=== PATIENT | female | born 1990 | race Caucasian/White ===

== ENCOUNTER 2019-12-26 13:34 | Outpatient (CLI) | payer OTHER ==
[~2019-12-26] VITALS: Ht 160 cm; Wt 61.5 kg
[2019-12-26 14:00] VITALS: BP 116/68
[2019-12-26 14:41] LABS: APPEARANCE, URINE CLEAR (CLEAR); BACTERIA, URINE AUTO NEGATIVE (NEGATIVE); BILIRUBIN, URINE AUTO NEGATIVE (NEGATIVE); BLOOD, URINE BLOOD NEGATIVE (NEGATIVE); COLOR, URINE YELLOW (YELLOW); GLUCOSE, URINE (UA) AUTO NEGATIVE (NEGATIVE); KETONE, URINE AUTO NEGATIVE (NEGATIVE); LEUKOCYTE ESTERASE, URINE AUTO TRACE (NEGATIVE); MUCUS, URINE SMALL (NEGATIVE); NITRITE, URINE AUTO NEGATIVE (NEGATIVE); PROTEIN, URINE AUTO NEGATIVE (NEGATIVE); RBC, URINE AUTO 0 /HPF (0-3); SPECIFIC GRAVITY URINE AUTO 1.011 (1.002-1.035); SQUAMOUS EPITHELIAL CELL UR AU 1 /HPF (0-6); UROBILINOGEN, URINE AUTO 0.2 mg/dL (0.0-2.0); WBC, URINE AUTO 2 /HPF (0-3)
[2019-12-26] MEDS ORDERED: MAGN400C PO (16:08)
[2019-12-26] MEDS ORDERED: OMEP-218 PO (16:08)
== END 2019-12-26 15:40 | disposition home or self-care (01) ==
LOC: M LDO 13:34
PROVIDERS: ATTEND Advanced Practice Midwife
DX: O26.892 Other specified pregnancy related conditions, second trimester (principal); Z3A.26 26 weeks gestation of pregnancy

== ENCOUNTER → 2019-12-26 | Outpatient (CLI) | payer OTHER ==
[~2019-12-26] MED LIST: MAGN400C PO; OMEP-218 PO
--- NOTE | 2020-01-10 17:11 | REP ---
COMPLETE OBSTETRICAL ULTRASOUND: 12/26/19 CLINICAL: Anatomical assessment. TECHNIQUE: Transabdominal obstetric ultrasound with color Doppler evaluation. FINDINGS: Ultrasound examination demonstrates a single live intrauterine in transverse lie with head to maternal left. motion identified by technologist. The placenta noted anteriorly and grade 1 without evidence for placenta previa or abruption. Amniotic fluid volume is normal. The cervix measures 3.4cm in length and appears closed. NO evidence of nuchal cord. Gestational age by LMP 26 weeks 6 days with estimated date of delivery 03/27/20. Gestational age by current measurements 26 weeks 4 days with estimated date of delivery 03/29/20. HEART RATE: 147bpm Estimated weight: 970g (50th percentile) Anatomical assessment demonstrates normal cranium, choroid plexus, ventricles, cerebellum/cere fossa, facial features, diaphragm, stomach, three vessel cord/cord insertion, kidneys/bladder, spine and extremities. Limited evaluation of the four chamber heart and cardiac ventricular outflow tracts noted. IMPRESSION: 1. Single live intrauterine demonstrating appropriate interval growth. 2. Limited evaluation of the heart and cardiac ventricular outflow tracts warrants follow-up. Remainder of the anatomical assessment is complete and normal. MTDD
== END ==
LOC: M WHC 08:10
PROVIDERS: ATTEND Advanced Practice Midwife
DX: O32.2XX0 Maternal care for transverse and oblique lie, not applicable or unspecified (principal); Z36.89 Encounter for other specified antenatal screening; Z3A.26 26 weeks gestation of pregnancy

== ENCOUNTER → 2020-03-11 | Outpatient (REF) | payer OTHER, MEDICAID ==
[~2020-03-11] MED LIST changes: +DIFL200T PO
== END ==
LOC: M SFHCWAGY 10:07
PROVIDERS: ATTEND Obstetrics & Gynecology
DX: O34.219 Maternal care for unspecified type scar from previous cesarean delivery (principal)

== ENCOUNTER → 2020-03-14 | Outpatient (CLI) | payer OTHER ==
[~2020-03-14] MED LIST changes: +PERCOCET PO
--- NOTE | 2020-03-14 13:02 | REP ---
INDICATION: GROWTH/YONATAN. TECHNIQUE: Transabdominal scanning FINDINGS: Multiple ultrasonographic images of the gravid uterus show a single living intrauterine gestation in the cephalic presentation. Doppler interrogation of the heart is a heart rate of 146 beats per minute. The placenta is anterior and not low lying. The cervix measures 3.2 cm in length and is closed. The subjective amniotic fluid volume is within normal limits. The calculated amniotic fluid index is 10.4 with an expected range 7.3 to 23.8. BPD 9.2 cm 37 weeks 3 days, HC 33.0 cm 37 weeks 4 days, AC 32.8 cm 36 weeks 5 days, FL 6.6 cm 34 weeks 0 days. Estimated weight is 2877 g which is at the 19th percentile for 38 week 1 day gestational age. IMPRESSION: Limited OB ultrasound as described above with an estimated gestational age of 36 weeks 0 days via composite criteria and an CAIO of 04/11/2020 based on that. <Electronically signed by Delfino Cantu > 03/14/20 [id number]
== END ==
LOC: M WHC 11:11
PROVIDERS: ATTEND Obstetrics & Gynecology
DX: O34.219 Maternal care for unspecified type scar from previous cesarean delivery (principal); Z3A.36 36 weeks gestation of pregnancy

== ENCOUNTER → 2020-03-17 | Outpatient (CLI) | payer OTHER ==
[~2020-03-17] MED LIST changes: -PERCOCET PO
== END ==
LOC: M LABSMTC 12:40
PROVIDERS: ATTEND Anesthesiology
DX: Z01.812 Encounter for preprocedural laboratory examination (principal); Z20.828 Contact with and (suspected) exposure to other viral communicable diseases

== ENCOUNTER 2020-03-20 05:29 | Inpatient (IN) | payer OTHER ==
[2020-03-20] VITALS (8 sets, daily range): BP systolic 115–149; BP diastolic 63–91
[~2020-03-20] VITALS: Ht 160 cm; Wt 65.0 kg
[2020-03-20] MEDS ORDERED: BICITRA 30ML SOLN UDC PO ONE (06:00)
[2020-03-20] MEDS ORDERED: LR 1,000 ML IV ONE (06:00)
[2020-03-20] MEDS ORDERED: ceFAZolin SOD 2 GM in IV 1 EA IV ONE (06:00)
[2020-03-20 06:10] LABS: BASO % 0.3 % (0.0-1.0); EOS # 0.2 10^3/uL (0.0-0.5); EOS % 1.4 % (0.0-3.0); HEMATOCRIT 34.9 % (36.0-47.0); HEMOGLOBIN 10.8 g/dl (12.0-15.5); LYMPH # 2.5 10^3/uL (1.5-5.0); LYMPH % 22.6 % (24.0-44.0); MEAN CORPUSCULAR HEMOGLOBIN 26.1 pg (27.0-33.0); MEAN CORPUSCULAR HGB CONC 30.9 g/dl (32.0-36.5); MEAN CORPUSCULAR VOLUME 84.3 fl (80.0-96.0); MONO # 0.7 10^3/uL (0.0-0.8); MONO % 6.5 % (0.0-5.0); NEUTROPHILS # 7.4 10^3/uL (1.5-8.5); NEUTROPHILS % 68.3 % (36.0-66.0); PLATELET COUNT, AUTOMATED 279 10^3/uL (150-450); RED BLOOD COUNT 4.14 10^6/uL (4.00-5.40); WHITE BLOOD COUNT 10.8 10^3/uL (4.0-10.0)
[2020-03-20] MEDS ORDERED: LR 1,000 ML IV SCH (07:00)
[2020-03-20] MEDS ORDERED: MORPHINE PRES-FREE INJ 10 MG/10 ML VIAL (J2274) As Ordered ONE (07:32)
[2020-03-20] MEDS ORDERED: PHENYLephrine HCL 500 MCG/5 ML (100MCG/ML) SYRINGE (J2370) As Ordered ONE (07:33)
[2020-03-20] MEDS ORDERED: OXYTOCIN 30 UNITS IN 0.9% NaCl 500ML IV BAG (J2590) As Ordered ONE ×2 (07:33→09:00)
[2020-03-20] MEDS ORDERED: ePHEDrine SULFATE 25 MG/5 ML(5MG/ML) SYRINGE As Ordered ONE (07:33)
[2020-03-20] MEDS ORDERED: NALOXONE INJ 0.4MG/1ML VIAL (J2310 PER 1MG) IV PRN ×2 (07:47)
[2020-03-20] MEDS ORDERED: NALBUPHINE HCL 10 MG/ML AMP (J2300) IV PRN (07:47)
[2020-03-20] MEDS ORDERED: ONDANSETRON 4MG/2ML VIAL IV PRN ×3 (07:47→09:15)
[2020-03-20] MEDS ORDERED: diphenhydrAMINE 50MG/ML VIAL (J1200) IV PRN (07:47)
[2020-03-20] MEDS ORDERED: METOCLOPRAMIDE INJ 10MG/2ML VIAL (J2765 PER 1) IV PRN (07:47)
[2020-03-20 08:15] LABS: AMPHETAMINES URINE REFLEX NEGATIVE (NEGATIVE); BARBITURATES URINE REFLEX NEGATIVE (NEGATIVE); BENZODIAZEPINES URINE REFLEX NEGATIVE (NEGATIVE); COCAINE METABOLITE URINE REFLE NEGATIVE (NEGATIVE); METHADONE URINE REFLEX NEGATIVE (NEGATIVE); OPIATES URINE REFLEX NEGATIVE (NEGATIVE); PHENCYCLIDINE URINE REFLEX NEGATIVE (NEGATIVE)
[2020-03-20] MEDS ORDERED: ONDANSETRON 4MG/2ML VIAL As Ordered ONE (08:15)
[2020-03-20 08:48] LABS: CANNABINOIDS URINE REFLEX PENDING CONFIRMATION (NEGATIVE)
[2020-03-20] MEDS ORDERED: OXYTOCIN DRIP 30 UNITS in IV 1 EA IV SCH (08:49)
--- NOTE | 2020-03-20 08:58 | ROOPDOC ---
[facility] Report Of Operation Report of Operation DATE OF PROCEDURE: 03/20/2020 PREPROCEDURE DIAGNOSES: 39+ weeks gestation, history of low transverse section 2 POSTPROCEDURE DIAGNOSES: Same as preoperative PROCEDURE: Repeat low transverse section SURGEON: Jose Alejandro Tsai DO FACOG ULTRASONOGRAPHER: García Manjarrez MD FACOG (Essential role in retraction, extraction, and closure of all tissue layers) ANESTHESIA: Spinal with Duramorph ESTIMATED BLOOD LOSS: 500 mL. IV FLUIDS: 1400 mL LR URINE OUTPUT: 100 mL COMPLICATIONS: None. PREOPERATIVE ANTIBIOTICS: Ancef 2g IV x 1. COMPLICATIONS: none DATA: Apgars 9 and 9. Birthweight, 2980 g, 6 lbs 9 oz. SPECIMENS: none PRIMARY INDICATION FOR : History of prior low transverse sections DESCRIPTION OF PROCEDURE: The patient was counseled on the risks, benefits, indications and alternatives of the procedure. Informed consent was obtained. She was taken to the operating room with IV running and placed on the operating table in the dorsal supine position with a leftward tilt. Regional anesthesia/epidural was bolused and found to be adequate. Sequential compression devices were placed on the lower extremities. A Blue catheter was placed under sterile conditions. She was prepared and draped in normal sterile fashion. A time out was performed per protocol. Epidural anesthesia was again found to be adequate. A Pfannenstiel skin incision was made with the 10 blade. The 10 blade was used to dissect down to the level of the rectus sheath fascia. The rectus sheath pressure was incised midline and this was extended bilaterally with Artis scissors , and manual stretch. The rectus muscle bellies were dissected off the rectus sheath fascia superiorly and inferiorly using both sharp and blunt dissection. The midline was identified. The peritoneum was identified and entered digitally. The peritoneal opening was extended with manual stretch. The Mobius retractor was placed. The vesicouterine peritoneum was dissected with Metzenbaum scissors to create the bladder flap. A low transverse uterine incision was made with the 10 blade. This was extended with manual stretch. The amniotic sac was punctured, and clear fluid was noted. The head delivered through the hysterotomy without difficulty. The remainder of the body delivered with ease. The cord was doubly clamped and cut, and the baby was handed off to awaiting care. data shown above. The placenta was removed manually. The intrauterine cavity was cleared of all clot and debris. The hysterotomy was closed with 0 Vicryl in running locked fashion. This was reinforced with a second imbricating layer using 0 Vicryl in running fashion. Excellent hemostasis of the hysterotomy was noted. The pelvis was irrigated and the fluid suctioned. The Mobius retractor was removed. The peritoneum was closed with 3-0 Vicryl running fashion. The rectus muscle bellies were reapproximated with interrupted stitches using 3-0 Vicryl. The rectus muscles bellies were hemostatic. The rectus sheath fascia was closed with 0 Vicryl running fashion. The subcutaneous layer was irrigated and the fluid suctioned. Small bleeding vessels were cauterized with Bovie. Excellent hemostasis was noted. The subcutaneous layer was reapproximated with 3-0 Vicryl running fashion. Skin was closed with 3-0 Monocryl in subcuticular fashion. An Optifoam bandage was placed over the closed incision. Sponge, needle and instrument counts were correct per protocol throughout the procedure. The patient tolerated the entire procedure very well. She was transferred to the PACU in stable condition. DO JODI Ware JONATHAN R. DO Mar 20, 2020 08:58
[2020-03-20] MEDS ORDERED: PERCOCET 5MG/325MG TAB PO PRN (09:00)
[2020-03-20] MEDS ORDERED: RHOGAM 300 MCG (1500 IU) INJ (J2790) IM SCH (09:00)
[2020-03-20] MEDS ORDERED: ACETAMINOPHEN 500 MG TAB PO PRN (09:00)
[2020-03-20] MEDS ORDERED: MEASLES,MUMPS,RUBELLA VACCINE INJ (MMR-II) (90707) SC SCH (09:00)
[2020-03-20] MEDS: PRENATAL VITAMINS CHEWABLE TABLET PO SCH (09:00)
[2020-03-20] MEDS: DOCUSATE SODIUM 100MG CAPSULE PO SCH ×2 (09:00→21:13)
[2020-03-20] MEDS ORDERED: oxyCODONE 5MG TAB PO PRN (09:15)
[2020-03-20] MEDS ORDERED: fentaNYL 100 MCG/2 ML INJECTION (J3010) As Ordered ONE (09:19)
[2020-03-20] MEDS: fentaNYL 100 MCG/2 ML INJECTION (J3010) IV PRN ×4 (09:21→09:48)
[2020-03-20 09:39] LABS: HEPATITIS C VIRUS ABY INDEX < 0.0 INDEX (<0.8); HIV 1&2 SCREEN CENTAUR NEGATIVE (NEGATIVE)
[2020-03-20] MEDS ORDERED: oxyCODONE 5MG TAB As Ordered ONE (09:52)
[2020-03-20] MEDS: KETOROLAC 30 MG/ML 1ML VIAL IV SCH ×3 (11:12→22:51)
[2020-03-20] MEDS: PROMETHAZINE 25 MG TAB PO PRN (12:51)
[2020-03-20] MEDS: PERCOCET 5MG/325MG TAB PO PRN (19:27)
[2020-03-21] MEDS: PROMETHAZINE 25 MG TAB PO PRN (00:38)
[2020-03-21 02:00] VITALS: BP 128/83
[2020-03-21] MEDS: KETOROLAC 30 MG/ML 1ML VIAL IV SCH (05:08)
[2020-03-21 06:00] VITALS: BP 146/76
[2020-03-21 06:59] LABS: HEMATOCRIT 34.4 % (36.0-47.0); HEMOGLOBIN 10.4 g/dl (12.0-15.5); MEAN CORPUSCULAR HEMOGLOBIN 25.9 pg (27.0-33.0); MEAN CORPUSCULAR HGB CONC 30.2 g/dl (32.0-36.5); MEAN CORPUSCULAR VOLUME 85.8 fl (80.0-96.0); PLATELET COUNT, AUTOMATED 275 10^3/uL (150-450); RED BLOOD COUNT 4.01 10^6/uL (4.00-5.40); WHITE BLOOD COUNT 11.5 10^3/uL (4.0-10.0)
[2020-03-21] MEDS: DOCUSATE SODIUM 100MG CAPSULE PO SCH (08:05)
[2020-03-21] MEDS: PERCOCET 5MG/325MG TAB PO PRN ×2 (08:05→14:03)
[2020-03-21] MEDS ORDERED: PERCOCET PO (08:40)
[2020-03-21] MEDS: PRENATAL VITAMINS CHEWABLE TABLET PO SCH (09:00)
--- NOTE | 2020-03-21 09:02 | DS.PDOC ---
Discharge Summary General Date of Admission Mar 20, 2020 at 05:29 Date of Discharge 03/21/20 Discharge Summary PROCEDURES PERFORMED DURING STAY: Repeat LTCS ADMITTING DIAGNOSES: 1. Repeat LTCS. 2. Insufficient Care DISCHARGE DIAGNOSES: 1. Postoperative Day 1, desires discharge, per Consult with Dr. Manjarrez cleared for discharge COMPLICATIONS/CHIEF COMPLAINT: Previous Section. HISTORY OF PRESENT ILLNESS: Bina is a 30 y/o at 39 weeks EGA, who was admitted for a 3rd Repeat LTCS on 03/20/20. She was noncompliant throughout her and records are limited. She is adamant about being discharged home today, regardless if is discharged home today. She is bottle feeding infant. Reports pain is well controlled with Toradol and Percocet. Reports passing flatus and voiding without difficulty. Tolerating a regular diet well. Moving around her room with ease. HOSPITAL COURSE: Uncomplicated. DISCHARGE MEDICATIONS: Please see below. ALLERGIES: Please see below. PHYSICAL EXAMINATION ON DISCHARGE: VITAL SIGNS: Please see below. GENERAL: Alert and oriented x3, appears anxious. HEENT: Normal on examination NECK: Supple, no JVD CARDIOVASCULAR EXAMINATION: Pulses equal bilaterally, no SOB, no chest pain RESPIRATORY EXAMINATION: Regular rate, no accessory muscle use. ABDOMINAL EXAMINATION: Soft, nontender, Uterus at U-1, small to scant flow. D ressing intact, scant amount of drainage circled at upper right corner. EXTREMITIES: No edema, no calf tenderness. SKIN: Intact, pink, no skin irritation or rashes noted. NEUROLOGICAL EXAMINATION: Grossly intact PSYCHIATRIC EXAMINATION: Denies depression symptoms. Appears anxious. LABORATORY DATA: Please see below. IMAGING: None PROGNOSIS: Good. ACTIVITY: As tolerated. No lifting over 10lbs. Pelvic rest. DIET: Regular DISCHARGE PLAN: Discharge Home. DISPOSITION: Stable. DISCHARGE INSTRUCTIONS: 1. Follow up in 2 wks in the office for incision check, then 6wks for check. 2. Percocet every 4-6hrs as needed for pain. 3. Nothing in the vagina for 6 weeks. 4. Reviewed reasons to call office including fever, chills, red streaking on breasts, foul smelling discharge, chest pain, shortness of breath, sudden swelling in legs and/or calf tenderness. 5. Reviewed signs of surgical infection including fever, chills, redness of incision, discharge from incision, swelling of incision, and/or opening of incision she should call office. 6. Reviewed signs for depression and to call if she has depressive symptoms. DISCHARGE CONDITION: Stable. TIME SPENT ON DISCHARGE: Greater than 15 minutes. Vital Signs/I&Os Vital Signs Date Time Temp Pulse Resp B/P (MAP) Pulse Ox O2 Delivery O2 Flow Rate FiO2 03/21/20 08:05 18 03/21/20 06:00 98.0 68 146/76 (99) 99 Room Air I&O- Last 24 Hours up to 6 AM 03/21/20 06:00 Intake Total 2523 ml Output Total 3850 ml Balance -1327 ml Laboratory Data Labs 24H Laboratory Tests 2 03/20/20 09:48: Serology Scanned Report Hepatitis B Testing 03/21/20 06:40: Nucleated Red Blood Cells % (auto) 0.0 CBC/BMP Laboratory Tests 03/21/20 06:40 Discharge Medications Scheduled PRN Oxycodone/Acetaminophen (Oxycodone-Acetaminophen 5-325) 1 Each Tablet, 1 TAB PO Q4-6HP PRN for PAIN Allergies Coded Allergies: Sulfa (Sulfonamide Antibiotics) (Verified Allergy, Intermediate, HIVES, 03/13/20) codeine (Verified Allergy, Intermediate, HIVES, 03/13/20) ibuprofen (Verified Adverse Reaction, Intermediate, N/V, 03/13/20) Alma Arias CNM Mar 21, 2020 09:02
[2020-03-21 10:14] VITALS: BP 116/79
[2020-03-25 02:06] LABS: Cannabinoid Positive (.); GC Carboxy THC 146 ng/mL (Cutoff=10)
== END 2020-03-21 15:05 | disposition home or self-care (01) | DRG 540 ==
LOC: M LDI 05:29 → M OBS 10:14
PROVIDERS: ADMIT Obstetrics & Gynecology; ATTEND Obstetrics & Gynecology
PROC: 10D00Z1 Extraction of Products of Conception, Low, Open Approach (ICD-10-PCS; principal; 2020-03-20 07:30)
DX: O34.211 Maternal care for low transverse scar from previous cesarean delivery (principal); Z3A.39 39 weeks gestation of pregnancy; Z91.19 Patient's noncompliance with other medical treatment and regimen; Z37.0 Single live birth

== ENCOUNTER → 2024-06-05 | Outpatient (CLI) | payer OTHER ==
[~2024-06-05] MED LIST changes: +OMEP-173 PO; -OMEP-218 PO; +PERCOCET PO
== END ==
LOC: M WHC 07:26
PROVIDERS: ATTEND Obstetrics & Gynecology
DX: Z34.92 Encounter for supervision of normal pregnancy, unspecified, second trimester (principal); Z3A.19 19 weeks gestation of pregnancy

== ENCOUNTER → 2024-07-26 | Outpatient (REF) | payer OTHER, MEDICAID ==
[2024-07-26 18:41] LABS: Trichomonas vaginalis (AMP) NOT DETECTED (NEGATIVE)
[2024-07-26 19:05] LABS: GC DNA AMPLIFICATION NEGATIVE (NEGATIVE)
== END ==
LOC: M SFHCWAGY 16:52
PROVIDERS: ATTEND Obstetrics & Gynecology
DX: Z34.92 Encounter for supervision of normal pregnancy, unspecified, second trimester (principal)

== ENCOUNTER → 2024-10-05 | Outpatient (CLI) | payer MEDICAID, OTHER ==
[~2024-10-05] MED LIST changes: +PRENTAB9 PO; +PROZ10CA11 PO
[2024-10-05 13:05] LABS: HEMATOCRIT 34.6 % (36.0-47.0); HEMOGLOBIN 10.7 g/dl (12.0-15.5); MEAN CORPUSCULAR HEMOGLOBIN 25.7 pg (27.0-33.0); MEAN CORPUSCULAR HGB CONC 30.9 g/dl (32.0-36.5); PLATELET COUNT, AUTOMATED 273 10^3/uL (150-450); RED BLOOD COUNT 4.17 10^6/uL (4.00-5.40); WHITE BLOOD COUNT 10.5 10^3/uL (4.0-10.0)
[2024-10-05 13:34] LABS: URIC ACID 4.7 MG/DL (3.1-7.8)
[2024-10-05 13:36] LABS: LDH LACTATE DEHYDROGENASE 184 U/L (120-246)
[2024-10-05 13:37] LABS: ALT/SGPT 15 U/L (7.0-40); AST/SGOT 14 U/L (<34); BILIRUBIN,TOTAL 0.6 MG/DL (0.3-1.2); CREATININE FOR GFR 0.56 MG/DL (0.55-1.30); GLOMERULAR FILTRATION RATE > 90.0 (>60)
[2024-10-05 14:05] LABS: HIV 1&2 SCREEN NEGATIVE (NEGATIVE)
[2024-10-05 14:13] LABS: HEPATITIS C VIRUS ABY INDEX 0.02 INDEX (<0.8)
== END ==
LOC: M PLALAB 09:16
PROVIDERS: ATTEND Advanced Practice Midwife
DX: O16.3 Unspecified maternal hypertension, third trimester (principal); O34.211 Maternal care for low transverse scar from previous cesarean delivery

== ENCOUNTER → 2024-10-09 | Outpatient (REF) | payer MEDICAID, OTHER ==
[~2024-10-09] MED LIST changes: -PROZ10CA11 PO; +PROZ10CA7 PO
[2024-10-09 17:05] LABS: TOTAL PROTEIN,RANDOM URINE 11.3 MG/DL (0.0-14.0)
[2024-10-09 17:32] LABS: Trichomonas vaginalis (AMP) NOT DETECTED (NEGATIVE)
[2024-10-09 17:55] LABS: GC DNA AMPLIFICATION NEGATIVE (NEGATIVE)
== END ==
LOC: M SFHCWAGY 15:24
PROVIDERS: ATTEND Advanced Practice Midwife
DX: O16.3 Unspecified maternal hypertension, third trimester (principal)